=== PATIENT | female | born 1945 | race Caucasian/White ===

== ENCOUNTER → 2024-01-10 14:09 | Outpatient (REF) | payer MEDICARE, SELFPAY | LOC: WDC 14:09 | PROVIDERS: ATTENDING PHYSICIAN Internal Medicine | DX: Z12.31 Encounter for screening mammogram for malignant neoplasm of breast (principal) | CPT/HCPCS: 77063; 77067 ==

== ENCOUNTER → 2024-01-22 09:06 | Outpatient (REF) | payer MEDICARE, SELFPAY | LOC: WDC 09:06 | PROVIDERS: ATTENDING PHYSICIAN Internal Medicine | DX: R92.8 Other abnormal and inconclusive findings on diagnostic imaging of breast (principal) | CPT/HCPCS: 76642 ==

== ENCOUNTER → 2024-01-23 10:11 | Outpatient (REF) | payer MEDICARE, SELFPAY | LOC: RCS 10:11 | PROVIDERS: ATTENDING PHYSICIAN Internal Medicine Cardiovascular Disease; FAMILY PHYSICIAN Internal Medicine | DX: I50.32 Chronic diastolic (congestive) heart failure (principal); R06.09 Other forms of dyspnea | CPT/HCPCS: 93306 ==

== ENCOUNTER 2024-02-06 10:56 | Emergency (ER) | payer MEDICARE, SELFPAY ==
[2024-02-06] VITALS (30 sets, daily range): BP systolic 88–122; BP diastolic 53–87; BMI 30.8
--- NOTE | 2024-02-06 11:57 | ED.GENMED ---
History of Present Illness
General
Chief Complaint: Cardiac Symptoms
Source: patient
Exam Limitations: none
Time Seen by Provider: 02/06/24 11:45
History of Present Illness
History of Present Illness:
See MDM
Past History
Past History
ED Past Medical History: GERD and Other (Hypertension, PAT)
Social History
Tobacco: Non-smoker
Alcohol: None
Personal:
Family History
Family History: Other (Mother with coronary disease and diabetes, father with pancreatic cancer coronary disease and diabetes)
Phy Exam
Physical Exam
Physical Exam:
See MDM
Course
Orders/Labs/Results
Orders:
Orders
02/06/24 11:00
Electrocardiogram (*1) Urgent
Reason for Study: Atrial Fibrillation
EKG- Treatment ONCE
02/06/24 11:53
0.9% Sodium Chloride 1000 ml [Nss] 1,000 ml IV BOLUS
Diltiazem HCl [Cardizem] 15 mg IV NOW STA
02/06/24 12:01
Complete Blood Count/With Diff Urgent
Comprehensive Metabolic Panel Urgent
Magnesium Urgent
Prothrombin Time Urgent
02/06/24 13:35
Propofol [Diprivan] 20 ml .ROUTE .STK-MED
Abnormal Lab Results
02/06/24
12:01
PT 53.3 H Sec
(11.4-14.6)
INR 5.81 H*
Chloride 114 H mmol/L
(98-107)
Carbon Dioxide 19 L mmol/L
(22-30)
BUN 20 H mg/dl
(7-17)
AST 63 H U/L
(14-36)
ALT 55 H U/L
(0-35)
Total Protein 6.2 L g/dl
(6.3-8.2)
07/11/24 12:01
02/06/24 12:01
Vital Signs
Initial and Last Documented VS:
Initial Vital Signs
Temp Pulse Resp BP Pulse Ox
97.5 F 68 16 122/74 98
02/06/24 10:58 02/06/24 10:58 02/06/24 10:58 02/06/24 10:58 02/06/24 10:58
Last Documented Vital Signs
Temp Pulse Resp BP Pulse Ox
97.4 F 64 17 91/62 95
02/06/24 14:08 02/06/24 14:16 02/06/24 14:16 02/06/24 14:16 02/06/24 14:16
Procedures
Moderate Sedation
ASA Risk Score: Class II
Chart and allergies reviewed: Yes
Consent for anesthesia obtained: Yes
Time out completed (validating right patient & procedure): Yes
Moderate Sedation Start Time(when first medication is given): 14:08
History of difficult intubation: No
Airway free of obstruction: Yes
Patient has a gag reflex: Yes
Patient is able to open mouth: Yes
Patient has no dentures: Yes
Patient has no loose teeth: Yes
Medication administered by Provider during Moderate Sedation: IV Propofol (mg)
Total dose administered: 50
Time drug administered: 14:08
Moderate Sedation Procedure End Time: 14:20
Comment: Time out at 1405
Cardioversion
Indication:: Afib
Performed by:: Salomon Lewis, DO
Synchronized?: Yes
Energy Used: 150 joules
Number of attempts: 1
Successful?: Yes
ASA Risk Score: Class II
Any reaction or bad outcome to prior sedation/anesthesia?: No history of a reaction
Sedation level to be attained: moderate
Chart and allergies reviewed: Yes
Patient reassessed prior to sedation: Yes
Time out completed at (validating right patient & procedure): 14:05
History of difficult intubation: No
Airway free of obstruction: Yes
Patient has a gag reflex: Yes
Patient is able to open mouth: Yes
Patient has no dentures: Yes
Patient has no loose teeth: Yes
Medication administered by Provider during Moderate Sedation: IV Propofol (mg)
Total dose administered: 50
Time drug administered: 14:08
Start Time: 14:08
Stop Time: 14:20
MDM/Problems Addressed
Differential Diagnosis Includes:
HPI and MDM Narrative:
78-year-old female presenting with palpitations and shortness of breath. She noticed it last night. She is concerned she is back in A-fib. She has a history paroxysmal A-fib and is on Coumadin. She denies being cardioverted in the past. Patient
currently on ciprofloxacin and Flagyl for diverticulitis flare. Her abdominal pain is improving
Patient is in A-fib but rate controlled. Will give dose of IV Cardizem and attempt to chemically cardiovert and will provide IV fluids
Physical exam
General: Well appearing and non-toxic
HEENT: protecting airway
Neck: appears supple
CV: No evidence of cyanosis. Irregular rhythm. Regular rate
Resp: No accessory muscle use
Abd: Non-distended. Soft and nontender
Extremities: No deformities. No pitting edema noted
Neuro: alert
Psych: Normal affect
Skin: Intact
Problems Addressed including Acute and Chronic Conditions affecting care:
1. Paroxysmal A-fib
Acuity: acute
Prognosis: stable
Details: Patient currently rate controlled. Will give dose of Cardizem and obtain basic blood
Updates
After prolonged observation and after IV Cardizem, patient still in rate controlled A-fib. Patient signed consent for cardioversion. Patient tolerated cardioversion well and with no complications
Given the elevated INR, discussed holding her Coumadin tonight and tomorrow
Differential Diagnosis (but not limited to): A-fib, palpitations, noncardiac chest discomfort
Testing considered: Troponin
Drug therapy (if applicable): OTC meds, please see d/c instruction regarding Rx drugs
Amount and/or Complexity of Data Reviewed
Clinical info obtained from: Patient
External data reviewed: N/A
Labs I independently reviewed (but not limited to): Elevated INR
Radiology: N/A
Pulse Ox: not hypoxic
EKG independently reviewed: A-fib, normal axis, no STEMI
Dining Room Manager: Rate controlled A-fib
Critical Care: N/A
Risk of Complication:
Social Determinants of health: Good social support
Discussed with other providers: N/A
Escalation of Care includes Admit/Obs: After being observed in the Emergency Department, pt stable for discharge.
Occasional wrong word or 'sound a like' substitutions may have occurred due to the inherent limitations of voice recognition software. Read the chart carefully and recognize, using context, where substitutions have occurred.
*Critical Care Note
Total Time (30-74mins, 75-104mins- exclusive of procedures): Not Applicable
ED Attending Note
-
Portions of this chart may have been created with voice recognition software.� Occasional wrong word or��sound alike� substitutions may have occurred due to the inherent limitations of voice recognition software.
Discharge Plan
Departure
Patient Disposition: Home (Routine Discharge)
Date of Disposition: 02/06/24
Time of Disposition: 14:24
Patient with high blood pressure during this ER visit?: No
Discharge Problem:
A-fib, Encounter for cardioversion procedure
Instructions: Atrial Fibrillation (DC), MODERATE SEDATION ADULT
Prescriptions:
No Action
losartan [Cozaar] 100 MG tablet
100 mg PO HS
yduuggiwofxg-emzy-injvt acid [Centrum Ultra Women's] 1 EACH tablet
1 ea PO DAILY
Lutein
DAILY
Vitamin D3
BID
aspirin 325 MG tablet
0.5 tab PO PRN PRN (Reason: preventive)
calcium carbonate [Calcium 600] 600 MG tablet
600 mg PO BID
famotidine 20 MG tablet
20 mg PO PRN PRN (Reason: gastric upset)
fluticasone propionate 1 SPRAY spray,suspension
1 spray intranasal DAILY
Loratadine
1 tab PO PRN PRN (Reason: allergies)
Tylenol Pm
1 tab PO PRN PRN (Reason: sleep)
Referrals:
Marko Anderson MD [Family Provider] -
Activity Restrictions/Additional Instructions:
Please return for any worsening symptoms.
You may return at any time if you have further concerns.
Please follow up with your doctor at the first available appointment, preferably this week.
Please make an appointment to see your data reviewer. Please explain that you required a cardioversion in the emergency department.
Because your INR was elevated, do not take your Coumadin today or tomorrow. You can resume your normal Coumadin dosing on 02-08-2024. Please have your INR rechecked this week.
Thank you for choosing [facility].
Interventions
Interventions:
*Risk Screen - Suicide Last Done: 02/06/24 11:35
*General Assessment Last Done: 02/06/24 11:35
*Neglect/Abuse Screening Last Done: 02/06/24 11:35
ED- Fall Risk Assessment Last Done: 02/06/24 11:35
*ED COVID-19 Vaccine History Last Done: 02/06/24 11:35
ED- Pulmonary Assessment Last Done: 02/06/24 11:35
ED- Cardiac Assessment Last Done: 02/06/24 11:35
Discharge Date and Time
Print Language: SYRIAC
[2024-02-06] MEDS: CARDIZEM 15 MG IV (12:05)
[2024-02-06] MEDS: NSS 1000 IV (12:06)
[2024-02-06 12:23] LABS: % Basophils 0.6 % (0-2); % Eosinophils 1.1 % (0-6); % Immature Granulocytes 0.5 % (0-0.5); % Lymphocytes 21.6 % (20.5-51.1); % Monocytes 8.1 % (1.7-9.3); % Neutrophils 68.1 % (42.2-75.2); Absolute Eosinophils 0.1 10^3/uL (0-0.7); Absolute Lymphocytes 1.4 10^3/uL (1.2-3.4); Absolute Monocytes 0.5 10^3/uL (0.1-0.6); Absolute Neutrophils 4.5 10^3/uL (1.4-6.5); Hematocrit 37.6 % (37.0-47.0); Mean Corp Hgb Conc. 34.6 g/dL (33.0-37.0); Mean Corpuscular Volume 89.5 fL (81.0-99.0); Mean Platelet Volume 9.5 fL (7.4-10.4); Nucleated Red Blood Cells % 0 %; Platelet Count 292 10^3/uL (130-400); Red Cell Dist. Width 13.7 % (11.5-14.5); White Blood Cell Count 6.6 10^3/uL (4.8-10.8)
[2024-02-06 12:50] LABS: ALT (SGPT) 55 U/L (0-35); AST (SGOT) 63 U/L (14-36); Albumin 3.9 g/dl (3.5-5.0); Alkaline Phosphatase 99 U/L (38-126); Blood Urea Nitrogen 20 mg/dl (7-17); Calcium 9.5 mg/dl (8.4-10.2); Carbon Dioxide 19 mmol/L (22-30); Chloride 114 mmol/L (98-107); Estimated Creatinine Clearance 63 ml/min; Glucose 96 mg/dl (70-99); Magnesium 2.3 mg/dl (1.6-2.3); Potassium 3.7 mmol/L (3.5-5.1); Sodium 141 mmol/L (135-145); Total Bilirubin 0.3 mg/dl (0.2-1.3); Total Protein 6.2 g/dl (6.3-8.2); eGFR > 60.00
[2024-02-06 13:21] LABS: PT 53.3 Sec (11.4-14.6)
[2024-02-06 13:22] LABS: INR 5.81
== END 2024-02-06 15:17 | disposition home or self-care (01) ==
LOC: EMR 10:56
PROVIDERS: EMERGENCY PHYSICIAN Student in an Organized Health Care Education/Training Program; FAMILY PHYSICIAN Internal Medicine
DX: I48.0 Paroxysmal atrial fibrillation (principal)
CPT/HCPCS: 99285; 92960; 96374; 96361; 99152; 80053; 83735; 85025; 85610; 93005

== ENCOUNTER → 2024-08-04 12:47 | Outpatient (REF) | payer MEDICARE, SELFPAY | LOC: WDC 12:47 | PROVIDERS: ATTENDING PHYSICIAN Internal Medicine | DX: R92.8 Other abnormal and inconclusive findings on diagnostic imaging of breast (principal) | CPT/HCPCS: 76642 ==

== ENCOUNTER → 2025-01-06 11:10 | Outpatient (REF) | payer MEDICARE, SELFPAY | LOC: HWRAD 11:10 | PROVIDERS: ATTENDING PHYSICIAN Internal Medicine | DX: M54.9 Dorsalgia, unspecified (principal) | CPT/HCPCS: 72110 ==

== ENCOUNTER → 2025-03-15 08:47 | Outpatient (REF) | payer MEDICARE, SELFPAY | LOC: HWRAD 08:47 | PROVIDERS: ATTENDING PHYSICIAN Physician Assistant Medical; FAMILY PHYSICIAN Internal Medicine | DX: R10.9 Unspecified abdominal pain (principal) | CPT/HCPCS: 74176 ==

== ENCOUNTER → 2025-03-22 14:41 | Outpatient (REF) | payer MEDICARE, SELFPAY | LOC: HWRAD 14:41 | PROVIDERS: ATTENDING PHYSICIAN Physician Assistant Medical; PRIMARYCARE PHYSICIAN Internal Medicine | DX: R39.9 Unspecified symptoms and signs involving the genitourinary system (principal) | CPT/HCPCS: 76775 ==

== ENCOUNTER → 2025-04-01 13:35 | Outpatient (REF) | payer MEDICARE, SELFPAY | LOC: EMG 13:35 | PROVIDERS: ATTENDING PHYSICIAN Internal Medicine | DX: M50.30 Other cervical disc degeneration, unspecified cervical region (principal); M79.602 Pain in left arm; R20.0 Anesthesia of skin | CPT/HCPCS: 95886; 95909 ==